=== PATIENT | male | born 1975 | race African-American/Black ===

== ENCOUNTER 2019-01-10 08:08 | Emergency (ER) | payer OTHER ==
[2019-01-10 08:34] LABS: ADD MAN DIFF? NO
[2019-01-10 08:37] LABS: BASOPHIL # 0.1 10^3/ul (0.0-0.1); EOSINOPHILS # 0.6 10^3/ul (0.0-0.5); EOSINOPHILS % 11.1 % (0.0-7.0); HEMATOCRIT 46.4 % (42.0-52.0); HEMOGLOBIN 16.3 g/dl (14.0-18.0); LYMPHOCYTES # 1.7 10^3/ul (0.8-2.9); LYMPHOCYTES % 34.8 % (15.0-51.0); MEAN CORPUSCULAR HEMOGLOBIN 28.2 pg (29.0-33.0); MEAN CORPUSCULAR HGB CONC 35.1 g/dl (32.0-37.0); MEAN CORPUSCULAR VOLUME 80.4 fl (82.0-101.0); MEAN PLATELET VOLUME 9.8 fl (7.4-10.4); MONOCYTE # 0.5 10^3/ul (0.3-0.9); MONOCYTES % 9.9 % (0.0-11.0); NEUTROPHIL # 2.1 10^3/ul (1.6-7.5); PLATELET COUNT 251 10^3/UL (140-415); RED BLOOD COUNT 5.77 10^6/ul (4.70-6.10); RED CELL DISTRIBUTION WIDTH 11.2 % (11.5-14.5)
[2019-01-10 08:54] LABS: ANION GAP 14 (5-13); BLOOD UREA NITROGEN 13 mg/dl (7-20); CALCIUM 9.2 mg/dl (8.4-10.2); CARBON DIOXIDE 25 mmol/L (21-31); CHLORIDE 101 mmol/L (97-110); CHOL/HDL RATIO 4.5 RATIO; CHOLESTEROL 192 mg/dl (100-200); CREATINE KINASE 102 IU/L (23-200); CREATININE 0.92 mg/dl (0.61-1.24); Estimated GFR > 60 mL/min (>60); GLUCOSE 268 mg/dl (70-220); HDL CHOLESTEROL 42 mg/dl (27-67); POTASSIUM 4.2 mmol/L (3.5-5.1); SODIUM 140 mmol/L (135-144)
[2019-01-10 08:56] LABS: INR 0.86; PROTIME 11.8 Sec (11.9-14.9); PT RATIO 0.9
[2019-01-10] MEDS: LABETALOL HCL 20MG INJ IV ×2 (08:56→10:22)
[2019-01-10 08:57] LABS: PARTIAL THROMBOPLASTIN TIME 22.5 Sec (23.0-35.0)
[2019-01-10 08:58] LABS: HEMOGLOBIN A1C 8.4 % (0-5.9)
[2019-01-10 09:01] LABS: LDL CHOLESTEROL,CALCULATED 36 mg/dl; TRIGLYCERIDES 569 mg/dl (0-149)
[2019-01-10 09:06] LABS: CK INDEX 0.6; CK-MB 0.57 ng/ml (0.0-2.4); TROPONIN-I < 0.012 ng/ml (0.000-0.120)
[2019-01-10 09:10] LABS: ETHANOL < 10.0 mg/dl (0-0)
[2019-01-10] MEDS: SOD CHLORIDE 0.9% 100 ML (09:26)
[2019-01-10] MEDS: IODIXANOL LOCM 100 ML BTL (09:27)
[2019-01-10] MEDS: niCARdipine-NS 0.1MG/ML DRIP 200 ML IV (10:21)
[2019-01-10] MEDS: hydrALAzine 20 MG INJ IV (10:22)
== END 2019-01-10 10:35 | disposition short-term general hospital (02) ==
LOC: E/R 08:08
DX: R53.1 Weakness (principal); E11.9 Type 2 diabetes mellitus without complications; R20.0 Anesthesia of skin
CPT/HCPCS: 36415; 70450; 70496; 70498; 71045; 80048; 80061; 80307; 82550; 82553; 82962; 83036; 84484; 85025; 85610; 85730; 93005; 96374; 96375; 99285-25